=== PATIENT | female | born 1960 | race African-American/Black ===

== ENCOUNTER 2016-05-17 16:26 | Outpatient (CLI) | payer OTHER ==
[2013-06-06 14:48] VITALS: BP 131/77
--- NOTE | 2016-05-17 20:54 | Diagnostic Imaging Report ---
[facility] [address] [facility].[address] [address] ~ ~ ~ ~ Report Submission Date: May 17, 2016 5:01:07 PM [employer] Patient ~ Study Name: SHELLIE COE ~ Date: May 17, 2016 4:36:21 PM [employer] ~ Modality Type: CR Gender: F ~ Description: LOWER EXTREMITY : 60 ~ Institution: [facility] Physician: MATI BARRERA ~ ~ ~ ~ Left knee - three views Clinical history: ~Left knee pain for 3 months. Findings: ~Examination left knee in AP, lateral and sunrise views demonstrates degenerative changes with narrowing of the joint space and prominence of the tibial spines. ~There is no evident fracture or joint effusion. ~Patellofemoral space is narrowed. Impression: 1. ~Degenerative changes. 2. ~No fracture. ~ Electronically signed on May 17, 2016 5:01:07 PM [employer] by: Hernan KWONG
== END 2016-05-17 16:27 ==
LOC: RAD 16:26
PROVIDERS: ATTEND Family Medicine
DX: M25.562 Pain in left knee (principal)
CPT/HCPCS: 73562

== ENCOUNTER 2016-07-26 15:21 | Outpatient (CLI) | payer OTHER ==
[2013-06-06 14:48] VITALS: BP 131/77
[2016-07-26 16:13] LABS: eGFR (African) > 60; eGFR (Non-African) > 60
== END 2016-07-26 15:22 ==
LOC: LAB 15:21
PROVIDERS: ATTEND Family Medicine
DX: I10 Essential (primary) hypertension (principal); E66.9 Obesity, unspecified
CPT/HCPCS: 36415; 80053; 80061; 83036

== ENCOUNTER 2016-07-27 10:04 | Emergency (ER) | payer OTHER ==
[2016-07-27 11:57] VITALS: BP 120/58
--- NOTE | 2016-07-27 11:57 | ED Physician Documentation ---
Facial/Scalp Injury - HISTORIAN Historian: patient - HPI Stated Complaint: Head Injury s/p Fall Chief Complaint: Facial Injury Additional Information: fell, hit face, no loc Onset: just prior to arrival Where: home Timing: still present Duration: constant Context: fall Severity: moderate Further Comments: no - ROS CONST: no problems. denies: headache CVS/RESP: none EYES/ENT: none. denies: problems with vision, sore throat, nasal drainage, nasal congestion GI/: none NEURO/PSYCH: denies: fainting, dizziness, tingling, numbness, anxiety, depression MS/SKIN/LYMPH: other (pain in left temporal area) - PAST HX Past History: other (htn) Immunizations: referred to PCP Medications: see nurse note Allergies: NKDA - SOCIAL HX Smoking History: non-smoker Drug Use: none - FAMILY HX Family History: No - VITAL SIGNS Vital Signs: Vital Signs Temp Pulse Resp BP Pulse Ox 97 F L 86 18 152/76 99 07/27/16 10:05 07/27/16 10:05 07/27/16 10:05 07/27/16 10:05 07/27/16 10:05 - REVIEWED ASSESSMENT Nursing Assessment Reviewed: Yes Vitals Reviewed: Yes Progress - Results/Orders Results/Orders: ct facial bones ordered - Progress Progress: pt. stable entire time in er Critical Care Note - Critical Care Note Total Time (mins): 0 ED Results Lab/Radiology - Lab Results Lab Results: none ordered - Radiology Radiology Impressions: ct facial bones neg - Orders Orders: ED Orders Category Date Time Status CT MAXILLOFACIAL W/O DYE Routine Exams 07/27/16 Ordered Facial Injury Physical Exam - Physical Exam General Appearance: alert, mild distress Head: trauma (left temporal area with bruising and 1 cm avulsion of skin). No: raccoon eyes, Pond's sign Neck: non-tender, painless ROM, trachea midline Nexus Criteria: Nexus criteria neg Eye: lids nml, conjunctivae nml, PERRL, EOMI ENT: nml external exam, pharynx nml, no injury to teeth, no injury to lips, no injury to gums Neuro/Psych: oriented x3, CN's nml as tested, sensation nml, motor nml, mood/ affect nml, copper etcher nml, reflexes nml, copper etcher symmetrical Respiratory: chest non-tender, no ecchymosis, breath sounds nml, no resp. distress, heart sounds nml CVS: reg. rate & rhythm, heart sounds nml Abdomen: non-tender, no organomegaly Skin: warm, other (1 cm circular avulsion to subcutaneous layer) Extremities: non-tender, nml ROM Discharge Clincal Impression: Facial trauma Qualifiers: Encounter type: initial encounter Qualified Code(s): S09.93XA - Unspecified injury of face, initial encounter Referrals: Elvis Diana MD [Primary Care Provider] - 2 Days Home Medications: Ambulatory Orders Cetirizine HCl [Zyrtec] 10 mg PO DAILY 06/06/13 Comments: Discharged in stable condition with recommendation to wash area with soap and water, dry, libra and band aid twice daily until healed. Condition: Stable Disposition: HOME, SELF-CARE Decision to Admit: NO Decision Time: 11:50
--- NOTE | 2016-07-28 01:40 | Diagnostic Imaging Report ---
Name: SHELLIE COE ~~ ~~ : 60 ~~ Acc #: [id number]~~ DOS: Jul 27, 2016 10:30:49 AM CDT ~~ Mod: CT\SR ~~ Desc: CT MAXILLOFACIAL W/O D 2 of 2 RISHABH MOLINA~ [address] [place] [address]. [id number] ~ ~ ~ ~ Report Submission Date: Jul 27, 2016 11:21:58 AM CDT Patient ~ Study Name: SHELLIE COE ~ Date: Jul 27, 2016 10:30:49 AM CDT ~ Modality Type: CT\SR Gender: F ~ Description: CT MAXILLOFACIAL W/O D : 60 ~ Institution: [facility] Physician: RISHABH MOLINA ~ ~ ~ ~ CT facial bones Clinical history laceration to face trauma TECHNIQUE: ~ Thin helical axial CT slices through the face with multiplanar reconstructions FINDINGS: ~ Visualized mandible is intact. ~The maxilla is intact. ~The pterygoid plates and zygomatic arches are intact. ~Scattered ethmoid sinus and maxillary sinus mucosal thickening is present. ~The orbits appear intact. ~There is no orbital air. ~The frontal bones are intact. ~The orbital floors are intact. ~There is minimal nasal septal deviation to the left. ~The mandibular condyles are appropriate in position. ~ Soft tissue windows show infiltration of the left facial fat with skin thickening consistent with inflammation or injury. ~The parotid gland is intact. ~The nasal spine is intact. IMPRESSION: ~ Inflammatory or traumatic changes to the soft tissues of the left face No underlying facial fracture Scattered sinus mucosal thickening ~ Electronically signed on Jul 27, 2016 11:21:58 AM CDT by: Clay KWONG
== END 2016-07-27 11:56 | disposition home or self-care (01) ==
LOC: ED 10:04 → SUPCPDRO 10:04 → ED 11:56
DX: S09.93XA Unspecified injury of face, initial encounter (principal); W19.XXXA Unspecified fall, initial encounter; Y93.9 Activity, unspecified; Y99.9 Unspecified external cause status
CPT/HCPCS: 70486; 99283

== ENCOUNTER 2018-08-19 07:40 | Outpatient (CLI) | payer OTHER ==
--- NOTE | 2018-08-19 08:39 | Diagnostic Imaging Report ---
BRUCE THORNE [facility] [address] [facility] [address] [address] Report Submission Date: Aug 19, 2018 8:06:07 AM CDT Patient Study Name: SHELLIE COE Date: Aug 19, 2018 7:51:37 AM CDT Modality Type: DX Gender: F Description: KNEE 3 VIEWS : 60 Institution: [facility] Physician: BRUCE THORNE EXAMINATION: KNEE 3 VIEWS HISTORY: CHRONIC LEFT KNEE PAIN. FELT A POP YESTERDAY WHEN STANDING UP FROM SITTING IN CHAIR. NO PREVIOUS INJURY OR SURGERY. (Hx) COMPARISON: None FINDINGS: The osseous structures are intact and well aligned without acute fracture or dislocation. There is mild osteoarthritis. A small patellar spur is noted. No joint effusion is seen. IMPRESSION: Mild osteoarthritis without acute fracture or dislocation identified. Electronically signed on Aug 19, 2018 8:06:07 AM CDT by: Curtis KWONG
== END 2018-08-19 07:45 | disposition home or self-care (01) ==
LOC: RAD 07:40
PROVIDERS: ATTEND Family Medicine
DX: M17.12 Unilateral primary osteoarthritis, left knee (principal); M25.562 Pain in left knee
CPT/HCPCS: 73562

== ENCOUNTER 2019-03-07 08:09 | Outpatient (CLI) | payer OTHER ==
[2019-03-07 08:35] LABS: BASOPHILS % 0.4 % (0.0-1.5); NEUTROPHILS # 6.3 # k/uL (1.4-7.7)
[2019-03-07 09:00] LABS: eGFR (Non-African) > 60
[2019-03-07 09:01] LABS: HDL 53 mg/dL (>40)
--- NOTE | 2019-03-09 15:57 | Diagnostic Imaging Report ---
PATIENT MR#: [id number] PATIENT PATIENT NAME: SHELLIE COE DATE OF : 1960 REFERRING PHYSICIAN: Elvis Diana EXAM DATE: 03/07/2019 ACCESSION NUMBER: [id number] EXAM DESCRIPTION: CHEST 2VIEW Indication: Hypertension. Technique: PA and lateral views of the chest were obtained. Comparison: March 25, 2018. Findings: The cardiomediastinal silhouette is normal in size and appearance. The thoracic aorta is mi ldly tortuous. There is no pulmonary edema or hilar enlargement. The lungs demonstrate no confluent opacities, pleur al effusions, or pneumothoraces. Right upper quadrant surgical clips suggesting prior cholecystectomy. Multilevel ante rior osteophytes are seen in the thoracic spine. Impression: No acute cardiopulmonary disease. Read by: Dr. Matt Gandhi Transcribed by: Matt Gandhi Transcribed Date: 03/09/2019 3:56:48 PM Electronically signed by: Dr. Matt Gandhi Date signed: 03/09/2019 3:56:48 PM
== END 2019-03-07 08:14 ==
LOC: LAB 08:09
PROVIDERS: ATTEND Family Medicine
DX: I10 Essential (primary) hypertension (principal); R07.9 Chest pain, unspecified
CPT/HCPCS: 36415; 71046; 80053; 80061; 85025